=== PATIENT | male | born 1955 | race Caucasian/White ===

== ENCOUNTER → 2017-03-27 | Outpatient (CLI) | payer OTHER ==
[~2017-03-27] MED LIST: DICLOFENAC SODI50 M1 PO; GABAPENTIN 400400 M1 PO; LEVAQUIN500 MG PO; PREDNISONE 20MG20 MG PO; PROAIR HFA0.09 MG/AC IH; SYMBICORT1 AE1 IH; VICODIN 5/500 T1 TAB PO
--- NOTE | 2017-03-28 05:47 | RADIOLOGY REPORT PS360 ---
EXAM: CT LUNG LOW DOSE WO CONTRAST COMPARISON: 05/31/2016 HISTORY: 61-year-old male with greater than 30 pack-year smoking history asymptomatic. ORDERING PHYSICIAN: COOPER BAEZ MD PATIENT AGE: 61 years TECHNIQUE: The exam was performed on a GE Light Speed [address] scanner using 2.96 mGy CTDI. A low dose helical CT CHEST was performed on a multi-detector scanner The LDCT was performed in a facility that meets the criteria for the screening program. Data regarding this exam was submitted to [employer] which is an approved registry. The order for this exam indicates that it came as a result of a lung cancer screening counseling shard decision-making visit that included all the elements required of such a visit including smoking cessation. The radiologist interpreting this exam meets the [facility] criteria for the LDCT lung cancer screening program. The exam is reported using the Lung-RADS classification scale and reported to the ACR registry. NOTE: This study was performed for the specific purposes of lung cancer screening and is not an alternative to diagnostic chest CT. RADIATION DOSE: CTDI vol(CT dose Index-volume) = 2.96mG DLP (Dose Length Product) = 118.34 mGcm FINDINGS: Diffuse centrilobular emphysematous changes are present with pulmonary hyperinflation and bronchial thickening. There is biapical scarring. Fibrotic changes are present in the right upper lobe anteriorly. There is persistent parenchymal opacification in the medial aspect of the right upper lobe in the perihilar region. Peripherally this is somewhat less dense but centrally is more dense compared to the previous exam. This may be due to postinflammatory fibrotic change. Has the patient had a bronchoscopy to evaluate this area? Calcified granuloma is present in the left lower lobe. No new nodular lesions are evident. Previously nodular opacities in the left upper lobe have improved.2 IMPRESSION: 1. Lung RADS Category: 4 A regarding the right perihilar abnormality which is shown some increased density centrally which may only be related to developing fibrotic changes. Neoplasm is not excluded. 3 month follow-up without and with contrast recommended 2. Other findings: Emphysema with obstructive chronic bronchitis and old granulomatous disease RECOMMENDATIONS: [address] without and with contrast if the patient has not had an interval bronchoscopy to further evaluate the right perihilar opacification
== END ==
LOC: RAD 12:53
DX: Z87.891 Personal history of nicotine dependence (principal); Z71.6 Tobacco abuse counseling; Z12.2 Encounter for screening for malignant neoplasm of respiratory organs
CPT/HCPCS: G0297